=== PATIENT | male | born 1960 | race Caucasian/White ===

== ENCOUNTER → 2020-06-19 12:40 | Outpatient (BNVA) | payer BC, SELFPAY | PROVIDERS: Visit Provider Orthopaedic Surgery | DX: Z76.89 Persons encountering health services in other specified circumstances (principal) ==

== ENCOUNTER → 2020-07-31 12:36 | Outpatient (BNVA) | payer BC, SELFPAY | PROVIDERS: Visit Provider Orthopaedic Surgery | DX: Z76.89 Persons encountering health services in other specified circumstances (principal) ==

== ENCOUNTER 2023-10-30 14:36 | Outpatient (AMB) | payer BC, SELFPAY ==
--- NOTE | 2023-10-30 14:38 | MHC.OFFVIS ---
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 He was seen in 2020 for right shoulder bursitis. He reports that the right shoulder is feeling worse than the left. Pain has started to travel up the sides of the neck . Mild numbness and tingling in the hands which is worse on the right than the left. Increased pain with reaching above the head, behind the back and across the body. 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 He was seen in 2020 for right shoulder bursitis. He reports that the right shoulder is feeling worse than the left. Pain has started to travel up the sides of the neck . Mild numbness and tingling in the hands which is worse on the right than the left. Increased pain with reaching above the head, behind the back and across the body. 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 [facility] Medical History Bursitis of right shoulder CAD (coronary artery disease) Heart problem Lateral epicondylitis Surgical History History of coronary artery stent placement Social History Current occupational status: employed Current occupation: [employer]- right handed Physical Exam Const General: cooperative, healthy appearing, no acute distress and well groomed Orientation/consciousness: oriented to person and oriented to place HEENT Head: Yes normal to inspection, Yes normocephalic and Yes atraumatic Eyes General: appearance normal, both eyes and all related structures Alignment and Position: alignment normal Conjunctivae: conjunctivae normal EOM: EOMs intact bilaterally Neck Neck: Yes normal visual inspection and Yes trachea midline Resp Other: No rerpiratory distress Effort & Inspection: normal respiratory effort and able to speak in complete sentences Cardio Other: Palpable radial pulse with no appreciable rythmic abnormalities GI Other: No abdominal distension Back/Spine/Pelvis Cervical Spine: normal cervical lordosis and cervical ROM normal Skin General skin exam: no rashes or lesions noted Neuro General: oriented to person, oriented to place and gait normal Extrem Other: 45/90/130/L5 Negative EC Bilateral + Hawkin's and Neer Assessment & Plan Assessment & Plan (1) Bilateral shoulder bursitis: Code(s): M75.51 - Bursitis of right shoulder; M75.52 - Bursitis of left shoulder Plan: This is a 63-year-old gentleman who works with his hands and has bilateral shoulder pain consistent with bursitis. He is difficulty sleeping at night and difficulty getting his hands above the level of his shoulders without difficulty. This has been slowly worsening over the past several months but worsened dramatically after particularly heavy day of lifting at work. I had a long discussion with him and recommend activity modification. He describes not having light duty at work and I think it is reasonable to abstain from lifting at work for period of time in which she can undergo physical therapy and chiropractic treatment. He has a chiropractor he is going to see for his neck pain. Coding Level of Care Code Est Pt Level 3 (82055) Diagnoses Bilateral shoulder bursitis M75.51; M75.52
== END 2023-10-30 15:58 | disposition home or self-care (01) ==
PROVIDERS: Visit Provider Orthopaedic Surgery
DX: M75.51 Bursitis of right shoulder (principal); M75.52 Bursitis of left shoulder
CPT/HCPCS: 99213

== ENCOUNTER → 2023-10-30 14:36 | Outpatient (BNVA) | payer BC, SELFPAY | PROVIDERS: Visit Provider Orthopaedic Surgery ==

== ENCOUNTER 2024-01-08 10:24 | Outpatient (REF) | payer OTHER, BC, SELFPAY ==
--- NOTE | ~2024-01-08 | MR_ITS ---
EXAMINATION: MR SHOULDER WITHOUT CONTRAST, RIGHT CLINICAL INFORMATION: Right shoulder pain following an injury 2 weeks ago. COMPARISON: Right shoulder MRI dated 12/25/2019. TECHNIQUE: MRI of the shoulder without contrast was performed on a high-field scanner. FINDINGS: ROTATOR CUFF: Mild supraspinatus and infraspinatus tendinosis, which has decreased in prominence when compared to the prior examination. Bursal surface fraying/partial tearing of the supraspinatus tendon measuring up to 1.0 cm in ML dimension as well as infraspinatus insertional intrasubstance partial tearing measuring 1.0 x 0.8 cm (AP by ML). Tearing is decreased in prominence when compared to the prior examination. No full-thickness rotator cuff tendon tear. Mild teres minor muscle atrophy, new when compared to the prior examination. BICEPS: Small amount of fluid within the proximal long head biceps tendon sheath, consistent with mild tenosynovitis. No transverse tendon tear or tendon retraction. CORACOACROMIAL ARCH: The undersurface of the acromion is minimally curved with tiny subacromial spurs. Moderate acromioclavicular osteoarthritis and small joint effusion. LABRUM/CAPSULE: Redemonstration of near circumferential undersurface tearing of the labrum is redemonstrated. No new or increasing labral tear. Significant interval decrease with near-complete resolution of the previously seen paralabral cyst. Tiny residual posterosuperior paralabral cyst measuring up to 0.7 cm in greatest dimension. Intact joint capsule. GLENOHUMERAL JOINT/MARROW: Mild posterior glenoid articular cartilage thinning and signal heterogeneity with minimal subchondral cystic change and tiny marginal osteophytes, new when compared to the prior examination. No acute osseous injury. No significant joint effusion. MR/MR shoulder RT wo con IMPRESSION: 1. Mild supraspinatus and infraspinatus tendinosis with bursal surface fraying/partial tearing, decreased in prominence when compared to the prior examination. No full-thickness rotator cuff tendon tear. Mild teres minor muscle atrophy, new when compared to the prior examination. 2. Mild proximal long head biceps tenosynovitis without a measurable tendon tear. 3. Moderate acromioclavicular osteoarthritis and small joint effusion with tiny subacromial spurs, unchanged. 4. Near circumferential undersurface tearing of the glenoid labrum, unchanged. Near-complete resolution of the previously seen paralabral cyst with a tiny residual posterosuperior paralabral cyst measuring up to 0.7 cm. 5. Mild glenohumeral osteoarthritis, new when compared to the prior examination.
== END 2024-01-08 10:25 | disposition home or self-care (01) ==
LOC: HO.MRI 10:24
PROVIDERS: PCP Pediatrics; Visit Provider Orthopaedic Surgery
DX: M24.811 Other specific joint derangements of right shoulder, not elsewhere classified (principal)
CPT/HCPCS: 73221

== ENCOUNTER 2024-01-09 13:00 | Outpatient (RCR) | payer OTHER, BC, SELFPAY ==
[2023-12-14 11:08] VITALS: PULSE 73; O2SAT 96
== END 2024-06-24 07:49 | disposition home or self-care (01) ==
LOC: HO.PTWFD 13:00
PROVIDERS: PCP Pediatrics; Visit Provider Orthopaedic Surgery
DX: M75.51 Bursitis of right shoulder (principal); M75.52 Bursitis of left shoulder
CPT/HCPCS: 97110; 97140; 97162; 97530

== ENCOUNTER 2024-01-22 09:38 | Outpatient (AMB) | payer BC, SELFPAY ==
--- NOTE | 2024-01-22 09:43 | MHC.OFFVIS ---
Vital Signs 01/22/24 09:44 Height 5 ft 3 in Weight 189 lb BMI 33.5 Handedness Right Intake Visit Reasons: O/V B/L Shoulder pain- work status Intake Note: Ajit is a 63 year old right hand dominant male who presents today as a new patient with complaints of bilateral shoulder pain. Ajit has been out of work , we received paperwork and need to discuss work status. Patient reports his left shoulder is worse than his right with numbness radiating into right hand. He is unable to raise his arms above his head and ROM is limited. He expresses he is in therapy, waiting for MRI for rt shoulder and neck. Wants to discuss work status today. Accompanied by: Spouse Allergies No Known Allergies Allergy (Verified 01/22/24 09:49) HPI HPI O/V B/L Shoulder pain- work status: Details: Ajit is a 63 year old right hand dominant male who presents today with complaints of bilateral shoulder pain and neck pain. He feels these injuries occurred at work especially with all the repetative motions he was doing recently at work. Ajit has been out of work , we received paperwork and need to discuss work status. Patient reports his left shoulder is worse than his right with numbness radiating into right hand. He is unable to raise his arms above his head and ROM is limited. He expresses he is in therapy, waiting for MRI for left shoulder and neck. 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 [address] [address] Magnetic Resonance Report Signed Patient: Ajit Tinsley MR#: [id number] : 1960 Acct:[id number] Age/Sex: 63 / M ADM Date: 01/08/24 Loc: HO.MRI Attending Dr: Frederic Cummings MD Ordering Physician: Frederic Cummings MD Date of Service: 01/08/24 Procedure(s): MR shoulder RT wo con Accession Number(s): [id number] cc: Frederic Cummings MD; NICOLE GUTHRIE MD~ EXAMINATION: MR SHOULDER WITHOUT CONTRAST, RIGHT CLINICAL INFORMATION: IMPRESSION: 1. Mild supraspinatus and infraspinatus tendinosis with bursal surface fraying/partial tearing, decreased in prominence when compared to the prior examination. No full-thickness rotator cuff tendon tear. Mild teres minor muscle atrophy, new when compared to the prior examination. 2. Mild proximal long head biceps tenosynovitis without a measurable tendon tear. 3. Moderate acromioclavicular osteoarthritis and small joint effusion with tiny subacromial spurs, unchanged. 4. Near circumferential undersurface tearing of the glenoid labrum, unchanged. Near-complete resolution of the previously seen paralabral cyst with a tiny residual posterosuperior paralabral cyst measuring up to 0.7 cm. 5. Mild glenohumeral osteoarthritis, new when compared to the prior examination. Assessment & Plan Assessment & Plan (1) Internal derangement of left shoulder: Code(s): M24.812 - Other specific joint derangements of left shoulder, not elsewhere classified Category: Medical Plan: MRI ordered. Cannot lift arm comfortably and as such cannot work. f/u 6 weeks (2) Neck pain: Code(s): M54.2 - Cervicalgia Category: Medical Plan: Included this is rx for PT (3) Internal derangement of right shoulder: Code(s): M24.811 - Other specific joint derangements of right shoulder, not elsewhere classified Category: Medical Plan: MRI shows extensive labral tearing and ACJ OA. RTC tendonitis. COnt PT Out of work f/u 6 weeks Orders: Orders PT Evaluation and Treatment Today M24.811 - Other specific joint derangements of right shoulder, not elsewhere classified, M24.812 - Other specific joint derangements of left shoulder, not elsewhere classified, M54.2 - Cervicalgia MR shoulder LT wo con Today M24.812 - Other specific joint derangements of left shoulder, not elsewhere classified Coding Level of Care Code Est Pt Level 4 (62681) Diagnoses Internal derangement of left shoulder M24.812 Neck pain M54.2 Internal derangement of right shoulder M24.811
[2024-01-22 09:44] VITALS: BMI 33.5
== END 2024-01-22 11:39 | disposition home or self-care (01) ==
PROVIDERS: Visit Provider Orthopaedic Surgery
DX: M24.812 Other specific joint derangements of left shoulder, not elsewhere classified (principal); M54.2 Cervicalgia; M24.811 Other specific joint derangements of right shoulder, not elsewhere classified
CPT/HCPCS: 99213

== ENCOUNTER → 2024-01-22 09:38 | Outpatient (BNVA) | payer BC, OTHER, SELFPAY | PROVIDERS: Visit Provider Orthopaedic Surgery ==

== ENCOUNTER 2024-02-26 17:52 | Outpatient (REF) | payer OTHER, BC, SELFPAY ==
--- NOTE | ~2024-02-26 | MR_ITS ---
EXAMINATION: MR SHOULDER WITHOUT CONTRAST, LEFT CLINICAL INFORMATION: Left shoulder pain. COMPARISON: None available. TECHNIQUE: MRI of the shoulder without contrast was performed on a high-field scanner. FINDINGS: ROTATOR CUFF: There is mild supraspinatus and subscapularis tendinosis. Subtle fraying is noted at the cephalad margin of the subscapularis tendon at the insertion on the lesser tuberosity. No discrete tears. At the supraspinatus insertion, there is an 8 x 5 x 3 mm low signal intensity focus consistent with calcific tendinitis. Minimal overlying bursal edema. No tears. There is moderate atrophy and grade 3 fatty replacement of the teres minor muscle. No additional rotator cuff muscle atrophy or fatty replacement. No appreciable abnormalities around the expected location of the axillary nerve at the quadrilateral space. BICEPS: Normal. CORACOACROMIAL ARCH: The undersurface of the acromion is flat with no subacromial spur. Moderate acromioclavicular osteoarthritis. LABRUM/CAPSULE: There is an ill-defined near circumferential tear of the glenoid labrum, which is most pronounced posterosuperiorly between the 11 o'clock position and 9 o'clock position and anteroinferiorly between the 2 o'clock position and 5 o'clock position. A small 6 mm paralabral cyst is suspected posteroinferiorly. Joint capsule is unremarkable. GLENOHUMERAL JOINT/MARROW: Small glenoid osteophytes. Mild chondral thinning at the humeral head superomedially. No fracture or malalignment. Bone marrow signal is normal. No joint effusion. MR/MR shoulder LT wo con IMPRESSION: 1. Mild supraspinatus and subscapularis tendinosis with an 8 mm focus of calcific tendinitis at the supraspinatus insertion. No rotator cuff tears. 2. Moderate acromioclavicular and mild glenohumeral osteoarthritis. 3. Near circumferential tear of the glenoid labrum. 4. Moderate atrophy and grade 3 fatty replacement of the teres minor muscle. No appreciable abnormalities at the quadrilateral space.
== END 2024-02-26 17:53 | disposition home or self-care (01) ==
LOC: HO.MRI 17:52
PROVIDERS: PCP Pediatrics; Visit Provider Orthopaedic Surgery
DX: M24.812 Other specific joint derangements of left shoulder, not elsewhere classified (principal)
CPT/HCPCS: 73221

== ENCOUNTER 2024-03-04 10:01 | Outpatient (AMB) | payer BC, SELFPAY ==
[2024-03-04 10:03] VITALS: BMI 33.5
--- NOTE | 2024-03-04 10:03 | MHC.OFFVIS ---
Vital Signs 03/04/24 10:03 Height 5 ft 3 in Weight 189 lb BMI 33.5 Intake Visit Reasons: O/V B/L Shoulder pain-6 wk follow up Intake Note: Ajit is a 63 year old right hand dominant male who presents today for a follow up of his bilateral shoulder pain. He remains out of work at this time. Patient reports that he has noticed some improvement, He has started physical therapy which he is going 2x a week. Allergies No Known Allergies Allergy (Verified 01/22/24 09:49) HPI HPI O/V B/L Shoulder pain-6 wk follow up: Details: Ajit returns today having just started PT. His right shoulder is OK and his left shoulder has been increasingly painful. He is not currently working. He has had an MRI of both shoulders. 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 Left : 1. Mild supraspinatus and subscapularis tendinosis with an 8 mm focus of calcific tendinitis at the supraspinatus insertion. No rotator cuff tears. 2. Moderate acromioclavicular and mild glenohumeral osteoarthritis. 3. Near circumferential tear of the glenoid labrum. 4. Moderate atrophy and grade 3 fatty replacement of the teres minor muscle. No appreciable abnormalities at the quadrilateral space. Right: 1. Mild supraspinatus and infraspinatus tendinosis with bursal surface fraying/partial tearing, decreased in prominence when compared to the prior examination. No full-thickness rotator cuff tendon tear. Mild teres minor muscle atrophy, new when compared to the prior examination. 2. Mild proximal long head biceps tenosynovitis without a measurable tendon tear. 3. Moderate acromioclavicular osteoarthritis and small joint effusion with tiny subacromial spurs, unchanged. 4. Near circumferential undersurface tearing of the glenoid labrum, unchanged. Near-complete resolution of the previously seen paralabral cyst with a tiny residual posterosuperior paralabral cyst measuring up to 0.7 cm. 5. Mild glenohumeral osteoarthritis, new when compared to the prior examination. Assessment & Plan Assessment & Plan (1) Internal derangement of left shoulder: Code(s): M24.812 - Other specific joint derangements of left shoulder, not elsewhere classified Category: Medical Plan: Left shoulder with degenerative labral tearing and mild supraspiantus tendinosis and small calcification. PT and out or work. Ryan lreassess in 6 weeks (2) Internal derangement of right shoulder: Code(s): M24.811 - Other specific joint derangements of right shoulder, not elsewhere classified Category: Medical Plan: Degenerative labral tearing and OA. PT and out of work. Will follow up in 6 weeks Coding Level of Care Code Est Pt Level 4 (67024) Diagnoses Internal derangement of left shoulder M24.812 Internal derangement of right shoulder M24.811
== END 2024-03-04 10:46 | disposition home or self-care (01) ==
PROVIDERS: PCP Pediatrics; Visit Provider Orthopaedic Surgery
DX: M24.812 Other specific joint derangements of left shoulder, not elsewhere classified (principal); M24.811 Other specific joint derangements of right shoulder, not elsewhere classified
CPT/HCPCS: 99213

== ENCOUNTER → 2024-03-04 10:01 | Outpatient (BNVA) | payer BC, OTHER, SELFPAY | PROVIDERS: PCP Pediatrics; Visit Provider Orthopaedic Surgery ==

== ENCOUNTER 2024-04-18 11:23 | Outpatient (AMB) | payer OTHER, BC, SELFPAY ==
[2024-04-18 11:34] VITALS: BMI 27.9
--- NOTE | 2024-04-18 11:34 | MHC.OFFVIS ---
Vital Signs 04/18/24 11:34 Height 5 ft 9 in Weight 189 lb BMI 27.9 Intake Visit Reasons: O/V B/L Shoulder pain-6 wk follow up Intake Note: Ajit is a 63 year old right hand dominant male who presents today for a follow up of his bilateral shoulder pain. He remains out of work at this time Allergies No Known Allergies Allergy (Verified 01/22/24 09:49) HPI HPI O/V B/L Shoulder pain-6 wk follow up: Details: Ajit is a 63-year-old gentleman who is 6 we follow up with bilateral shoulder pain. On the right he feels the pain is improving but he still has difficulty with abduction and reaching activities on the left. His MRI on the left shows supraspinatus and subscapularis tendinosis with calcific tendinitis at the supraspinatus insertion. He has circumferential glenoid labral tear and teres minor atrophy with moderate AC joint arthritis and mild glenohumeral arthritis. 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 Mild supraspinatus and subscapularis tendinosis with an 8 mm focus of calcific tendinitis at the supraspinatus insertion. No rotator cuff tears. 2. Moderate acromioclavicular and mild glenohumeral osteoarthritis. 3. Near circumferential tear of the glenoid labrum. 4. Moderate atrophy and grade 3 fatty replacement of the teres minor muscle. No appreciable abnormalities at the quadrilateral space. Assessment & Plan Assessment & Plan (1) Internal derangement of left shoulder: Code(s): M24.812 - Other specific joint derangements of left shoulder, not elsewhere classified Category: Medical Plan: I have in his left shoulder aggressive tendinitis as well as circumferential labral tearing and mild osteoarthritis. I think surgery would be of questionable benefit but at the same time he is having difficult time with his work. I think a reasonable compromise would be PRP injection around the focus of calcium in his supraspinatus tendon as I think this is a primary pain generator. I will see if this can be accommodated 2 which is worker's comp insurance. I recommend he continue to abstain from work and continue physical therapy. I would see him back in 4 weeks approximately. (2) Calcific tendonitis of left shoulder: Code(s): M75.32 - Calcific tendinitis of left shoulder Category: Medical Plan: Coding Level of Care Code Est Pt Level 4 (68275) Diagnoses Internal derangement of left shoulder M24.812 Calcific tendonitis of left shoulder M75.32
== END 2024-04-18 14:15 | disposition home or self-care (01) ==
PROVIDERS: PCP Pediatrics; Visit Provider Orthopaedic Surgery
DX: M24.812 Other specific joint derangements of left shoulder, not elsewhere classified (principal); M75.32 Calcific tendinitis of left shoulder
CPT/HCPCS: 99214

== ENCOUNTER → 2024-04-18 11:23 | Outpatient (BNVA) | payer BC, OTHER, SELFPAY | PROVIDERS: PCP Pediatrics; Visit Provider Orthopaedic Surgery ==

== ENCOUNTER 2024-05-23 11:29 | Outpatient (AMB) | payer OTHER, BC, SELFPAY ==
--- NOTE | 2024-05-23 11:33 | MHC.OFFVIS ---
Vital Signs 05/23/24 11:34 Height 5 ft 9 in Weight 189 lb BMI 27.9 Intake Visit Reasons: OV:WC - Left Shoulder Calcific Tendonitis Intake Note: Ajit is a 63 year old right hand dominant male who presents today for a follow up of his WC Left shoulder calcific tendonitis. We petitioned for approval of PRP injections however this was denied. Allergies No Known Allergies Allergy (Verified 01/22/24 09:49) HPI HPI OV:WC - Left Shoulder Calcific Tendonitis: Details: Ajit is a 63 year old right hand dominant male who presents today for a follow up of his WC Left shoulder calcific tendonitis/rotator cuff tendinosis and labral degenerative tearing. We petitioned for approval of PRP injections however this was denied stating that he should have a steroid injection and fail before considering PRP. Unfortunately he is adamantly opposed to injecting steroid into his body. Him and his both agree that they are not interested in in steroids given the side effect profile and that it will not help him heal. 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 1. Mild supraspinatus and subscapularis tendinosis with an 8 mm focus of calcific tendinitis at the supraspinatus insertion. No rotator cuff tears. 2. Moderate acromioclavicular and mild glenohumeral osteoarthritis. 3. Near circumferential tear of the glenoid labrum. 4. Moderate atrophy and grade 3 fatty replacement of the teres minor muscle. No appreciable abnormalities at the quadrilateral space. Assessment & Plan Assessment & Plan (1) Calcific tendonitis of left shoulder: Code(s): M75.32 - Calcific tendinitis of left shoulder Category: Medical Plan: This is a 64-year-old gentleman with predominantly left shoulder pain. His MRI and exam are consistent with calcific tendinitis with rotator cuff dysfunction. He is adamant that he does not want a steroid injection. I will seek a peer to peer to petition for PRP. Coding Level of Care Code Est Pt Level 3 (58351) Diagnoses Calcific tendonitis of left shoulder M75.32
[2024-05-23 11:34] VITALS: BMI 27.9
== END 2024-05-23 12:03 | disposition home or self-care (01) ==
PROVIDERS: PCP Pediatrics; Visit Provider Orthopaedic Surgery
DX: M75.32 Calcific tendinitis of left shoulder (principal)
CPT/HCPCS: 99213

== ENCOUNTER → 2024-05-23 11:29 | Outpatient (BNVA) | payer BC, OTHER, SELFPAY | PROVIDERS: PCP Pediatrics; Visit Provider Orthopaedic Surgery | DX: M75.32 Calcific tendinitis of left shoulder (principal) | CPT/HCPCS: 99212 ==

== ENCOUNTER 2024-07-25 06:05 | Outpatient (REF) | payer OTHER, BC, SELFPAY | END 2024-07-25 06:06 | disposition home or self-care (01) | LOC: CF 06:05 | PROVIDERS: Visit Provider Internal Medicine | DX: Z13.89 Encounter for screening for other disorder (principal) ==

== ENCOUNTER 2024-07-25 08:58 | Outpatient (AMB) | payer OTHER, SELFPAY ==
[2024-07-25 09:04] VITALS: BP 178/92; PULSE 74; O2SAT 97
--- NOTE | 2024-07-25 09:04 | A.OFFVIS_ITS ---
Vital Signs 07/25/24 09:04 07/25/24 10:17 BP 178/92 H 147/88 H Blood Pressure Location Rt brachial Rt brachial Position Sitting Sitting Pulse 74 63 Pulse Source Pulse Oximeter Pulse Oximeter Pulse Oximetry (%) 97 97 Oxygen Delivery Method Room Air Room Air Intake Visit Reasons: Left shoulder PRP Allergies No Known Allergies Allergy (Verified 01/22/24 09:49) HPI HPI Left shoulder PRP: Details: Patient presents for scheduled procedure. Denies any recent cough, cold, infection, fever or other significant changes in medical history since last office visit. [facility] Medical History Lateral epicondylitis Bursitis of right shoulder CAD (coronary artery disease) Heart problem Surgical History History of coronary artery stent placement Social History Current occupational status: employed Current occupation: [employer]- right handed Physical Exam Vital Signs: Last Vital Signs Pulse 74 07/25/24 09:04 BP 178/92 H 07/25/24 09:04 Pulse Ox 97 07/25/24 09:04 Oxygen Delivery Method Room Air 07/25/24 09:04 Office Procedures Platelet Rich Plasma Injection PRP Joint Injection After informed written consent was obtained, pre-procedure oxygen saturation, heart rate, and blood pressure were recorded. An 18 gauge butterfly needle was used to obtain 50 mL of whole blood from the right antecubital fossa. This was then mixed with 9 mL anticoagulant citrate dextrose solution. The 60 mL mixture was counter balanced to within 1 g and spun at 3500 rpm for 10 minutes. Platelet poor plasma was then drawn using a bench top press model. 6 mL of slightly leukocyte rich PRP was isolated in a 10 cc syringe. Primary Site: left shoulder (2 mL each at supraspinatus tendon, biceps tendon, AC joint) Prep: site was prepped using sterile technique Approach Used: other (US guided) Procedure: The patient tolerated the procedure well XCELL Platelet Plasma - 0232T 60 mL All charges added?: Procedure code (CPT) selection complete Assessment & Plan Assessment & Plan (1) Calcific tendonitis of left shoulder: Code(s): M75.32 - Calcific tendinitis of left shoulder Category: Medical Plan Patient is status post left shoulder PRP injection as above. Patient tolerated procedure well and was discharged home in stable condition with discharge instructions. All questions were answered. We will follow-up via telephone or in clinic to assess response to therapy. A follow-up appointment was made during today's visit. Orders: Orders AMB Platelet Rich Plasma (PRP) Injection Today M75.32 - Calcific tendinitis of left shoulder Coding Level of Care Code Procedure Only Diagnoses Calcific tendonitis of left shoulder M75.32 CPT Codes XCELL Kit 60mL ([id number])
[2024-07-25 10:17] VITALS: BP 147/88; PULSE 63; O2SAT 97
== END 2024-07-25 10:25 | disposition home or self-care (01) ==
LOC: HO.PMCPRC 08:58
PROVIDERS: PCP Pediatrics; Visit Provider Internal Medicine
DX: M75.32 Calcific tendinitis of left shoulder (principal)
CPT/HCPCS: 0232T

== ENCOUNTER 2024-09-18 09:12 | Outpatient (AMB) | payer OTHER, BC, SELFPAY ==
--- NOTE | 2024-09-18 09:17 | A.OFFVIS_ITS ---
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 He initially received the injection to address pe rsistent shoulder pain and decreased range of motion, particularly impacting activities such as reaching overhead and securing his belt. Post-procedure, he experienced significant pain, lasting at least one week, for which Tramadol was prescribed with minimal relief. There was a mild improvement in his condition, allowing better sleep on the affected side and slight enhancement in range of motion, but notable limitations persist. He reports feeling bone pain after the injection, though advised this is not bone-related. Prior interventions included the PRP injection, with considerations for further treatment due to the mild benefit observed. Pain Description - Location: Left shoulder - Exacerbating factors: Reaching overhead, tying belt - Relieving factors: None explicitly discussed - Interference: Affects sleep, daily activities such as securing belt Physical Exam - Upper Extremity- Limited range of motion in the left shoulder; difficulty extending above head level and severely limited external rotation, unable to touch lower back Results Pain Management - Affect: No discussion regarding mood impacts - Analgesia: Tramadol provided mild relief; plan to use oxycodone pre-procedure. Pain level improved slightly after initial treatment. 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 Physical Exam Vital Signs: Last Vital Signs Pulse 78 09/18/24 09:18 Resp 16 09/18/24 09:18 BP 181/97 H 09/18/24 09:18 Pulse Ox 97 09/18/24 09:18 Oxygen Delivery Method Room Air 09/18/24 09:18 BMI result Body Mass Index 29.4 Assessment & Plan Assessment & Plan (1) Calcific tendonitis of left shoulder: Code(s): M75.32 - Calcific tendinitis of left shoulder Category: Medical (2) Internal derangement of left shoulder: Code(s): M24.812 - Other specific joint derangements of left shoulder, not elsewhere classified Category: Medical (3) Bilateral shoulder bursitis: Code(s): M75.51 - Bursitis of right shoulder; M75.52 - Bursitis of left shoulder Category: Medical Plan Plan - Plan for a repeat PRP injection pending authorization from workers' compensation. Mild improvement following last PRP injection but deficits persist. - Implement a left suprascapular nerve block prior to injection for analgesia next time - Prescribe Valium to manage anxiety and reduce fainting risk during procedure - Prescribe Oxycodone as pre-procedure analgesic for both pre and post-procedure pain management - Provide a work note to excuse from work until October 26 or beyond as needed Patient was informed and verbally consented to the use of an ambient scribe for clinic note documentation during this visit. Discussion Notes I discussed with the patient that while some improvement was noted after the initial PRP injection, further procedures may be necessary to achieve significant benefits. We discussed the pain management plan, including the use of a suprascapular nerve block and pre-procedure medications (Oxycodone and Valium) to improve tolerance. The benefits and risks of these approaches were reviewed, including the potential for temporary relief through the nerve block and the effect of medications. We reviewed and agreed on pursuing a second PRP injection and necessary procedures for obtaining authorization. Patient Instructions - Take Oxycodone and Valium as directed 2 hours before the next PRP injection. - Monitor for pain levels and report if relief is not as expected or if there is worsening. - Fill prescriptions for pain management and store them securely. - Schedule follow-up appointments in coordination with the next procedure. - Contact insurance to confirm authorization for the upcoming procedure. - Reach out with any questions or concerns regarding medications or follow-up plan. - Note the work absence until October 26 due to the procedure. Medications: New diazepam take 2 hours prior to procedure 5 mg PO BEDTIME PRN 1 tab 0RF sleep oxycodone Partial Fill upon patient request. Take 2 tablets prior to procedure and then continue as needed 5 mg PO BID PRN 10 tabs 0RF pain Coding Level of Care Code Est Pt Level 3 (78220) Diagnoses Calcific tendonitis of left shoulder M75.32 Internal derangement of left shoulder M24.812 Bilateral shoulder bursitis M75.51; M75.52
[2024-09-18 09:18] VITALS: BP 181/97; PULSE 78; RESP 16; O2SAT 97; BMI 29.4
--- OUTSIDE RECORDS SUMMARY | 2024-09-18 09:32 | XMS_ITS | Clinical Summary ---
Author Organization [facility] [address] [facility] lding Address [address] [place] [address] Phone Care Team Providers Care Bleach Boiler Filler Name Role Phone Ameena Bonilla MD Primary Care Provider [phone] Allergies No known active allergies Medications Medication Sig Dispensed Refills Start Date End Date Status multivitamin with minerals tablet Take 1 Tablet by mouth 2 times daily. Active famotidine (PEPCID) 20 mg tablet Take 1 tablet (20 mg total) by mouth if needed for heartburn. Active amLODIPine (NORVASC) 2.5 mg tablet Take 1 tablet (2.5 mg total) by mouth 1 (one) time each day. 90 each 07/02/2024 09/30/2024 Active Active Problems Problem Noted Date Diagnosed Date Colon cancer screening 08/15/2024 Overview (08/15/2024): 08/06. Cologuard neg. Diastasis recti 07/02/2024 Obstructive sleep apnea 06/11/2020 Overview (06/05/2024): [facility] Polysomnogram: Date 06/05/2020; Wt 190#; BMI 34; SE 91%; SM 92%; REM 22%; RDI 6 (AHI 6), REM (RDI 13 - AHI 13), Central apneas 5; Obstructive apneas 0; Mixed apneas 0; hypopneas 37; RERAs 5; average oxygen saturation 94% (lowest 86% - without saturations <88% for 5% or more of study); PLMs 12. - Obstructive Sleep Apnea - mild; mostly hypopneas; without sleep related hypoventilation by 2019 polysomnogram. Obesity (BMI 30-39.9) 04/20/2018 Paresthesia of arm 04/20/2018 Chronic right-sided low back pain 04/18/2017 Carpal tunnel syndrome on both sides 09/09/2011 Overview (06/05/2024): EMG 11/30 moderate to severe right median neuropathy Nodule of chest wall 09/09/2011 Coronary artery disease invo lving pechanga coronary artery of pechanga heart without angina pectoris 08/11/2011 Overview (06/05/2024): [facility] admission from office- 07/26/11 07/27/2011 - BMS to RCA, to LCX Lifelong aspirin, Prasugrel ideally for a year 08/29 - normal nuclear exercise stress test 05/01. MIBI. Small inf basal infarct Last Assessment & Plan: They know this patient has a known history of coronary artery disease. He has been getting some shortness of breath with exertion. Today the ECG did demonstrate that the T waves were more inverted in 3 and aVF than they were in the past. Is not clear if he is progression of his coronary disease this may be causing some of her shortness of breath. The epigastric pain he gets is somewhat atypical for heart disease I am not going to schedule for stress echocardiogram. The meantime I did tell if any discomforts in his chest including the epigastric discomfort that lasted over 20 minutes call 911. Heartburn 06/03/2009 Rosacea 06/03/2009 Mixed hyperlipidemia 03/29/2006 Overview (06/05/2024): IMO update Last Assessment & Plan: I reviewed his last lipid profile with him and the triglycerides were 200 the LDL was 77. The patient does eat a fair amount of saturated fat and carbohydrates. I discussed this with him indicating that is to be important to try and get the triglycerides as well as LDL down. I did speak to about decreasing saturated fat intake cholesterol intake as well as his carbohydrates. He also is eating a fair amount of salty food fried food I told him he needs to cut down on this. I have given him a slip to repeat his lipid profile in about 4 to 6 weeks. Depending on what the lipids show we will decide if we will add anything to the Crestor. Encounters Date Type Department Care Team Description 07/02/2024 11:40 AM EST Lab Draw Station - [address] [phone] Routine general medical examination at a health care facility; Mixed hyperlipidemia; Coronary artery disease involving pechanga coronary artery of pechanga heart without angina pectoris 07/02/2024 9:30 AM EST Office Visit Adult Medicine - [address] [phone] Monika Schultz PA Routine general medical examination at a health care facility (Primary Dx); Gastroesophageal reflux disease, unspecified whether esophagitis present; Bloating; Globus sensation; Mixed hyperlipidemia; Coronary artery disease involving pechanga coronary artery of pechanga heart without angina pectoris; Special screening for malignant neoplasms, colon; Screening for malignant neoplasm of the rectum; Irregular heart rhythm; Asymptomatic PVCs; Elevated blood pressure reading; Elevated PSA from Last 3 Months Immunizations Name Administration Dates Next Due Tdap Tetanus diptheria acell ular pertussis (Boostrix; Adacel) 7yo and older 09/09/2011 Surgical History Surgery Date Site/Laterality Comments CARDIAC CATHETERIZATION 07.27.11 PROCEDURE: HISTORICAL CARDIAC CATH; COMMENT: [place] - [facility] to RCA and to LCX Family History Medical History Relation Name Comments CABG Father Coronary artery disease Father Diabetes Mother aat age 80 CABG Sister Relation Name Status Comments Father Mother Alive Sister Social History Tobacco Use Types Packs/Day Years Used Date Smoking Tobacco: Never Smokeless Tobacco: Never Alcohol Use Standard Drinks/Week Comments No 0 (1 standard drink = 0.6 oz pur e alcohol) Housing Instability Answer Date Recorde d Are you worried that in the next 2 months you may not have stable housing? No 07/01/2024 Food Access & Nutrition Answer Date Rec orded Do you have access to a vari ety of food including fruits and vegetables? Yes 07/01/2024 Access to Healthcare Answer Date Record ed Within the last 3 months, godwin jhaveri many times did you visit the emergency department for your medical care? 0 07/01/2024 Health Literacy Answer Date Recorded How often do you need to hav e someone help you when you read instructions, pamphlets, or other written material from your doctor or pharmacy? Often 07/01/2024 Caregiver: How often do you need to have someone help you when you read instructions, pamphlets, or other written material from your doctor or pharmacy? Not on file 07/01/2024 Financial Risk Answer Date Recorded How hard is it for you to pa y for the very basics like food, housing, medical care, and air conditioning / heating? Somewhat hard 07/01/2024 Transportation Answer Date Recorded Has the lack of transportati on kept you from meetings, work, or from getting things needed for daily living? No Has the lack of transportati on kept you from medical appointments or from getting medications? No 07/01/2024 Social Isolation Answer Date Recorded How often do you feel lonely or isolated from th ose around you? Never 07/01/2024 Food Risk Answer Date Recorded Within the past 12 months we worried whether our food would run out before we got money to buy more. Not asked 07/01/2024 Within the past 12 months th e food we bought just didn't last and we didn't have money to get more. Not asked 07/01/2024 Dependent Care Answer Date Recorded Do you need help finding or paying for care for your loved ones. For example, child protective services specialist or elderly care for an older adult? No 07/01/2024 Education Answer Date Recorded Do you think completing more education or training, like finishing a GED, going to college, or learning a trade, would be helpful for you? N/A 07/01/2024 Employment and Income Answer Date Recor ded During the last four weeks, have you been actively looking for work? No 07/01/2024 Living Situation Answer Date Recorded What is your living situation? 1 08/31/2023 Sex and Gender Information Value Date Recorded Sex Assigned at Not on file Gender Identity Not on file Sexual Orientation Not on file Job Start Date Occupation Industry Not on file Not on file Not on file Obstetrics History Last Filed Vital Signs Vital Sign Reading Time Taken Comments Blood Pressure 143/83 07/02/2024 9:34 AM EST Pulse 69 07/02/2024 9:34 AM EST Temperature 36.6 ??C (97.8 ??F) 07/02/2024 9:34 AM ES T Respiratory Rate - - Oxygen Saturation - - Inhaled Oxygen Concentration - - Weight 85.7 kg (189 lb) 04/30/2024 2:42 PM EDT Height 160 cm (5' 3 ) 07/02/2024 9:34 AM EST Body Mass Index 33.48 04/30/2024 2:42 PM EDT Plan of Treatment Upcoming Encounters Date Type Department Care Team ([facility] st Contact Info) Description 09/19/2024 10:00 AM EST Consult Gastroenterology - [place] [address] [facility] [address] [place] [phone] Marychuy Deleon, EMILY [address] [facility] [address] [place] [address] Health Maintenance Due Date Last Done Comments Zoster Vaccines (1 of 2) 2012 DTaP,Tdap,and Td Vaccines (2 - Td or Tdap) 09/09/2021 09/09/2011 Colorectal Cancer Screening: Stool Based Tests (FOBT/FIT) 07/17/2022 HIV Screening 07/17/2022 COVID-19 Vaccine (1 - 2023-2 5 season) 2024 Influenza Vaccine (#1) 2024 Depression Screening 07/01/2025 07/01/2024 Social Influencers of Health Screening 07/01/2025 07/01/2024 Hypertension/CHF/CAD Annual BMP Blood Test 07/02/2025 07/02/2024, 09/08/2023 Cholesterol Screening (Lipid Panel) 05/01/2029 05/01/2024, 05/01/2024 RSV Immunization Patients 60 + Years Old (1 - 1-dose 75+ series) 2037 Hepatitis C Screening Completed 11/28/2012 Colorectal Cancer Screening: Colonoscopy Discontinued 05/10/2017 HIB Vaccines Aged Out No longer eligi ble based on patient's age to complete this topic HPV Vaccines Aged Out No longer eligi ble based on patient's age to complete this topic Hepatitis A Vaccines Aged Out No long er eligible based on patient's age to complete this topic Hepatitis B Vaccines Aged Out No long er eligible based on patient's age to complete this topic IPV Vaccines Aged Out No longer eligi ble based on patient's age to complete this topic MMR Vaccines Aged Out No longer eligi ble based on patient's age to complete this topic Meningococcal ACWY Vaccine Aged Out N o longer eligible based on patient's age to complete this topic Pneumococcal Vaccine: Pediatrics (0 to 5 Years) and At-Risk Patients (6 to 64 Years) Aged Out No longer eligible based on patient's age to complete this topic RSV Immunization Patients Under 20 months Aged Out No longer eligible based on patient's age to complete this topic Varicella Vaccines Aged Out No longer eligible based on patient's age to complete this topic Procedures Procedure Name Priority Date/Time Associated Diagnosis Comments LAB COLOGUARD?? COLON CANCER SCREEN Routine 08/03/2024 8:40 AM EST Special screening for malignant neoplasms, colon Screening for malignant neoplasm of the rectum CBC WITH AUTO DIFFERENTIAL Routine 07/02/2024 11:36 AM EST Routine general medical examination at a [facility] care facility THYROID STIMULATING HORMONE WITH REFLEX TO FREE T4 AND FREE T3 Routine 07/02/2024 11:36 AM EST Routine general medical examination at a [facility] care facility HEMOGLOBIN A1C Routine 07/02/2024 11:36 AM EST Routine general medical examination at a health care facility Mixed hyperlipidemia Coronary artery disease involving pechanga coronary artery of pechanga heart without angina pectoris PROSTATE SPECIFIC ANTIGEN SCREEN Routine 07/02/2024 11:36 AM EST Routine general medical examination at a [facility] care facility COMPREHENSIVE METABOLIC PANEL Routine 07/02/2024 11:36 AM EST Routine general medical examination at a [facility] care facility CBC AND DIFFERENTIAL Routine 07/02/2024 11:36 AM EST Routine general medical examination at a health care facility ECG 12-LEAD Routine 07/02/2024 11:04 AM EST Coronary artery disease involving pechanga coronary artery of pechanga heart without angina pectoris Irregular heart rhythm LIPID PANEL Routine 05/01/2024 COLONOSCOPY Routine 05/10/2017 HEPATITIS C SCREENING Routine 11/28/2012 from Last 3 Months or Most Recently Relevant to Health Maintenance Results * Cologuard?? colon cancer screening (08/03/2024 8:40 AM EST) COLOGUARD Negative Negative [facility] Comment: NEGATIVE TEST RESULT. A negative Cologuard result indicates a low likelihood that a colorectal cancer (CRC) or advanced adenoma (adenomatous polyps with more advanced pre-malignant features) ??is present. The chance that a person with a negative Cologuard test has a colorectal cancer is less than 1 in 1500 (negative predictive value >99.9%) or has an ??advanced adenoma is less than ??5.3% (negative predictive value 94.7%). These data are based on a prospective cross-sectional study of 10,000 individuals at average risk for colorectal cancer who were screened with both Cologuard and colonoscopy. (Lori Norman al, N Engl J Med 2014;370(14):1286- 1297) The normal value (reference range) for this assay is negative. COLOGUARD RE-SCREENING RECOMMENDATION: Periodic colorectal cancer screening is an important part of preventive healthcare for asymptomatic individuals at average risk for colorectal cancer. ??Following a negative Cologuard result, the [place] Cancer Society and U.S. Multi-Society Task Force screening guidelines recommend a Cologuard re-screening interval of 3 years. References: [place] Cancer Society Guideline for Colorectal Cancer Screening: https://www.cancer.org/cancer/itnce-abakrz-ptecxw/dmhygalua-hferuetbw-jgjhtqo/ac s-rec ommendations.html.; Joey DK, Francis CR, Mitra LalaK, Colorectal Cancer Screening: Recommendations for Physicians and Patients from the U.S. Multi-Society Task Force on Colorectal Cancer Screening , Am J Gastroenterology 2017; 112:6520-5551. TEST DESCRIPTION: Composite algorithmic analysis of stool DNA-biomarkers with hemoglobin immunoassay. ?? Quantitative values of individual biomarkers are not reportable and are not associated with individual biomarker result reference ranges. Cologuard is intended for colorectal cancer screening of adults of either sex, 45 years or older, who are at average-risk for colorectal cancer (CRC). Cologuard has been approved for use by the U.S. FDA. The performance of Cologuard was established in a cross sectional study of average-risk adults aged 50-84. Cologuard performance in patients ages 45 to 49 years was estimated by sub-group analysis of near-age groups. Colonoscopies performed for a positive result may find as the most clinically significant lesion: colorectal cancer [4.0%], advanced adenoma (including sessile serrated polyps greater than or equal to 1cm diameter) [20%] or non- advanced adenoma [31%]; or no colorectal neoplasia [45%]. These estimates are derived from a prospective cross-sectional screening study of 10,000 individuals at average risk for colorectal cancer who were screened with both Cologuard and colonoscopy. (Lori Beltran et al, N Engl J Med 2014;370(14):0106-9550.) Cologuard may produce a false negative or false positive result (no colorectal cancer or precancerous polyp present at colonoscopy follow up). A negative Cologuard test result does not guarantee the absence of CRC or advanced adenoma (pre-cancer). The current Cologuard screening interval is every 3 years. ([place] Cancer Society and U.S. Multi-Society Task Force). Cologuard performance data in a 10,000 patient pivotal study using colonoscopy as the reference method can be accessed at the following location: www.[employer]/results. Additional description of the Cologuard test process, warnings and precautions can be found at www.[employer].com. Stool 08/03/2024 8:40 AM EST 08/04/2024 10:20 AM EST Monika MULTANI LAB MOLECULAR DIAGNO STICS ORDERABLES [employer] - [address] [place] [id number] [facility] [address] [place] [address] * (ABNORMAL) Prostate specific antigen screen (07/02/2024 11:36 AM EST) PSA 4.52(H) 0.00 - 4.00 ng/mL LAB CHEMISTRY METHOD 07/04/2024 9:02 PM EST [facility] Blood Venous blood specimen / Unknown Venipuncture / Unknown 07/02/2024 11:36 AM EST 07/02/2024 11:36 AM EST Narrative [facility] - 07/04/2024 9:02 PM EST The Siemens Advia Centaur Chemiluminescent Immunoassay is used. Results obtained with different assay methods or kits cannot be used interchangeably. Results cannot be interpreted as absolute evidence of the presence or absence of malignant disease. Monika MULTANI LAB BLOOD ORDERABLES Performing Organization Address City/[facility]/ZIP Co de Phone Number [facility] [address] [place] [address], [place] [phone] * Thyroid stimulating hormone with reflex to free t4 and free t3 (07/02/2024 11:36 AM EST) [facility] TSH 1.74 0.40 - 4.00 mcIU/mL LAB CHEMISTRY METHOD 07/02/2024 3:17 PM EST [facility] Blood Venous blood specimen / Unknown Venipuncture / Unknown 07/02/2024 11:36 AM EST 07/02/2024 11:36 AM EST Monika MULTANI LAB BLOOD ORDERABLES Performing Organization Address City/[facility]/ZIP Co de Phone Number [facility] [address] [place] [address], [place] [phone] * (ABNORMAL) CBC auto differential (07/02/2024 11:36 AM EST) [facility] WBC 8.5 4.8 - 10.8 K/mcL LAB HEMETOLOGY METHOD 07/02/2024 3:18 PM EST [facility] RBC 4.70 4.50 - 5.50 M/mcL LAB HEMETOLOGY METHOD 07/02/2024 3:18 PM EST [facility] Hemoglobin 14.0 13.5 - 17.5 g/dL LAB HEMETOLOGY METHOD 07/02/2024 3:18 PM EST [facility] Hematocrit 42.1 42.0 - 54.0 % LAB HEMETOLOGY METHOD 07/02/2024 3:18 PM [facility] MCV 90.1 79.0 - 98.0 FL LAB HEMETOLOGY METHOD 07/02/2024 3:18 PM [facility] MCH 30.0 27.0 - 32.0 pcg LAB HEMETOLOGY METHOD 07/02/2024 3:18 PM [facility] MCHC 33.3 32.0 - 37.0 g/dL LAB HEMETOLOGY METHOD 07/02/2024 3:18 PM [facility] RDW 13.6 11.0 - 15.0 % LAB HEMETOLOGY METHOD 07/02/2024 3:18 PM [facility] Platelets 245 130 - 400 K/mcL LAB HEMETOLOGY METHOD 07/02/2024 3:18 PM [facility] MPV 10.9 7.0 - 11.0 FL LAB HEMETOLOGY METHOD 07/02/2024 3:18 PM [facility] NRBC 0.0 <1.0 % LAB HEMETOLOGY METHOD 07/02/2024 3:18 PM [facility] NRBC Absolute 0.00 <0.10 K/mcL LAB HEMETOLOGY METHOD 07/02/2024 3:18 PM [facility] Neutrophils Relative 55.8 % LAB HEMETOLOGY METHOD 07/02/2024 3:18 PM [facility] Lymphocytes Relative 29.3 % LAB HEMETOLOGY METHOD 07/02/2024 3:18 PM [facility] Monocytes Relative 8.4 % LAB HEMETOLOGY METHOD 07/02/2024 3:18 PM [facility] Eosinophils Relative 5.0 % LAB HEMETOLOGY METHOD 07/02/2024 3:18 PM [facility] Basophils Relative 0.9 % LAB HEMETOLOGY METHOD 07/02/2024 3:18 PM EST [facility] Immature Granulocytes Relative 0.6 % LAB HEMETOLOGY METHOD 07/02/2024 3:18 PM EST [facility] Neutrophils Absolute 4.72 1.50 - 7.00 K/mcL LAB HEMETOLOGY METHOD 07/02/2024 3:18 PM EST [facility] Lymphocytes Absolute 2.48 1.00 - 5.00 K/mcL LAB HEMETOLOGY METHOD 07/02/2024 3:18 PM EST [facility] Monocytes Absolute 0.71 0.20 - 1.00 K/mcL LAB HEMETOLOGY METHOD 07/02/2024 3:18 PM EST [facility] Eosinophils Absolute 0.42 0.00 - 0.50 K/mcL LAB HEMETOLOGY METHOD 07/02/2024 3:18 PM EST [facility] Basophils Absolute 0.08 0.00 - 0.20 K/mcL LAB HEMETOLOGY METHOD 07/02/2024 3:18 PM EST [facility] Immature Granulocytes Absolute 0.05(H) 0.00 - 0.03 K/mcL LAB HEMETOLOGY METHOD 07/02/2024 3:18 PM EST [facility] Blood Venous blood specimen / Unknown Venipuncture / Unknown 07/02/2024 11:36 AM EST 07/02/2024 11:36 AM EST Monika MULTANI LAB BLOOD ORDERABLES [facility] [address] [place] [address], * Hemoglobin A1c (07/02/2024 11:36 AM EST) Hemoglobin A1C 5.0 <6.5 % LAB CHEMISTRY METHOD 07/03/2024 1:01 PM EST [facility] Mean Bld Glu Estim. 97 mg/dL LAB CHEMISTRY METHOD 07/03/2024 1:01 PM [facility] Blood Venous blood specimen / Unknown Venipuncture / Unknown 07/02/2024 11:36 AM EST 07/02/2024 11:36 AM EST Monika Schultz NERISSA LAB BLOOD ORDERABLES [facility] [address] [place] [address], * (ABNORMAL) Comprehensive metabolic panel (07/02/2024 11:36 AM EST) Sodium 140 133 - 145 mmol/L LAB CHEMISTRY METHOD 07/02/2024 3:15 PM [facility] Potassium 4.6 3.5 - 5.5 mmol/L LAB CHEMISTRY METHOD 07/02/2024 3:15 PM [facility] Chloride 108 96 - 110 mmol/L LAB CHEMISTRY METHOD 07/02/2024 3:15 PM [facility] CO2 25 21 - 32 mmol/L LAB CHEMISTRY METHOD 07/02/2024 3:15 PM [facility] Anion Gap 7 3 - 11 LAB CHEMISTRY METHOD 07/02/2024 3:15 PM [facility] Glucose 104(H) 70 - 100 mg/dL LAB CHEMISTRY METHOD 07/02/2024 3:15 PM [facility] BUN 15 5 - 25 mg/dL LAB CHEMISTRY METHOD 07/02/2024 3:15 PM [facility] Creatinine 0.83 0.70 - 1.30 mg/dL LAB CHEMISTRY METHOD 07/02/2024 3:15 PM [facility] eGFR 99 >=60 mL/min/1. 73m2 LAB CHEMISTRY METHOD 07/02/2024 3:15 PM [facility] Comment:Calculation based on the??Chronic Kidney Disease Epidemiology Collaboration (CKD-EPI) equation refit??without adjustment for race. BUN/Creatinine Ratio 18.1 LAB CHEMISTRY METHOD 07/02/2024 3:15 PM [facility] Calcium 9.8 8.5 - 10.5 mg/dL LAB CHEMISTRY METHOD 07/02/2024 3:15 PM [facility] AST (SGOT) 25 10 - 42 unit/L LAB CHEMISTRY METHOD 07/02/2024 3:15 PM [facility] ALT (SGPT) 45 10 - 60 unit/L LAB CHEMISTRY METHOD 07/02/2024 3:15 PM [facility] Alkaline Phosphatase 75 42 - 121 unit/L LAB CHEMISTRY METHOD 07/02/2024 3:15 PM [facility] Total Protein 7.5 6.0 - 8.0 g/dL LAB CHEMISTRY METHOD 07/02/2024 3:15 PM [facility] Albumin 4.2 3.2 - 5.0 g/dL LAB CHEMISTRY METHOD 07/02/2024 3:15 PM [facility] Total Bilirubin 0.5 0.0 - 1.4 mg/dL LAB CHEMISTRY METHOD 07/02/2024 3:15 PM [facility] Blood Venous blood specimen / Unknown Venipuncture / Unknown 07/02/2024 11:36 AM EST 07/02/2024 11:36 AM EST Monika MULTANI LAB BLOOD ORDERABLES [facility] [address] [place] [address], * ECG 12 lead (07/02/2024 11:04 AM EST) Narrative Monika Schultz PA - 07/02/2024 11:04 AM EST Sinus rhythm. ??PVC. ??Borderline left axis deviation. ??Nonspecific T abnormalities similar to 05/07. ST elevation in V1-V2 - pt is asymptomatic. Message to cardiology to schedule follow up Monika Wellerlip PA ECG ORDERABLES * (ABNORMAL) Lipid panel (05/01/2024) [facility] LDL/HDL Ratio 7(A) 0 - 4 Triglycerides 311(A) 0 - 150 mg/dL Cholesterol 257(A) 0 - 200 mg/dL HDL 38(A) 40 mg/dL LDL Cholesterol 157(A) 0 - 100 mg/dL Blood Venous blood specimen / Unknown Historical Provider LAB BLOOD ORDERAB LES * Colonoscopy (05/10/2017) [facility] Colonoscopy No interpretation with ,abstracted Anatomical Region Laterality Modality Other Historical Provider MD RK BECKFORD E * Hepatitis C Screening (11/28/2012) [facility] Hepatitis C Screening Abstracted Historical Provider MD RK BECKFORD E from Last 3 Months or Most Recently Relevant to Health Maintenance Care Teams Bleach Boiler Filler Relationship Specialty Start Date End Date Ameena Bonilla MD [address] [place] [id number] PCP - General Internal Medicine 08/13/15
== END 2024-09-18 09:43 | disposition home or self-care (01) ==
PROVIDERS: PCP Pediatrics; Visit Provider Internal Medicine
DX: M75.32 Calcific tendinitis of left shoulder (principal); M24.812 Other specific joint derangements of left shoulder, not elsewhere classified; M75.51 Bursitis of right shoulder; M75.52 Bursitis of left shoulder
CPT/HCPCS: 99213

== ENCOUNTER → 2024-09-18 09:12 | Outpatient (BNVA) | payer OTHER, BC, SELFPAY | PROVIDERS: PCP Pediatrics; Visit Provider Internal Medicine | DX: M75.32 Calcific tendinitis of left shoulder (principal); M24.812 Other specific joint derangements of left shoulder, not elsewhere classified; M75.51 Bursitis of right shoulder; M75.52 Bursitis of left shoulder | CPT/HCPCS: 99212 ==

== ENCOUNTER 2024-10-24 06:10 | Outpatient (REF) | payer OTHER, BC, SELFPAY ==
--- OUTSIDE RECORDS SUMMARY | 2024-10-24 06:13 | XMS_ITS | Clinical Summary ---
Author Organization [facility] [address] [facility] lding Address [address] [place] [address] Phone Care Team Providers Care Parts Administrator Name Role Phone Ameena Bonilla MD Primary Care Provider [phone] Allergies No known active allergies Medications multivitamin with minerals tablet Take 1 Tablet by mouth 2 times daily. Active famotidine (PEPCID) 20 mg tablet Take 1 tablet (20 mg total) by mouth if needed for heartburn. Active cholecalcifero l (Vitamin D3) 25 mcg (1,000 unit) capsule Take 1 capsule (1,000 Units total) by mouth 1 (one) time each day. 4 Active diazePAM (VALIUM) 5 mg tablet Take 1 tablet (5 mg total) by mouth. 5 Active amLODIPine (NORVASC) 2.5 mg tablet TAKE 1 TABLET(2.5 MG) BY MOUTH 1 TIME EACH DAY 90 tablet 5 Active amLODIPine (NORVASC) 2.5 mg tablet Take 1 tablet (2.5 mg total) by mouth 1 (one) time each day. 90 each 4 09/27/19 25 Discontinued Active Problems Problem Noted Date Diagnosed Date Colon cancer screening 08/15/2024 Overview (08/15/2024): 08/06. Cologuard neg. Diastasis recti 07/02/2024 Obstructive sleep apnea 06/11/2020 Overview (06/05/2024): [facility] Polysomnogram: Date 06/05/2020; Wt 190#; [...] wall 09/09/2011 Coronary artery disease invo lving [place] coronary artery of [place] heart without angina pectoris 08/11/2011 Overview (06/05/2024): [facility] admission from office- 07/26/11 07/27/2011 - [...] Rosacea 06/03/2009 Mixed hyperlipidemia 03/29/2006 Overview (06/05/2024): [facility] update Last Assessment & Plan: I reviewed [...] Encounters Date Type Department Care Team Description 09/19/2024 10:00 AM EST Consult Gastroenterology - [place] [address] [place] [address] Marychuy Deleon NP Gastroesophageal reflux disease, unspecified whether esophagitis present (Primary Dx); Abdominal bloating; Colonoscopy refused from Last 3 Months Immunizations Name Administration [...] care for your loved ones. For example, early childhood director or elderly care for an older adult? [...] Recorded Sex Assigned at Not on file Legal Sex Male 12:20 AM EST Gender Identity Not on file Sexual Orientation Not on file Obstetrics History Last Filed Vital Signs Vital Sign Reading Time Taken Comments Blood Pressure 143/83 07/02/2024 9:34 AM EST Pulse 69 07/02/2024 9:34 AM EST Temperature 36.6 ??C (97.8 ??F) 07/02/2024 9:34 AM ES T Respiratory Rate - - Oxygen Saturation - - Inhaled Oxygen Concentration - - Weight 90.7 kg (200 lb) 09/19/2024 9:58 AM EST Height 160 cm (5' 3 ) 09/19/2024 9:58 AM EST Body Mass Index 35.43 09/19/2024 9:58 AM EST Plan of Treatment Health Maintenance Due Date Last Done Comments Pneumococcal Vaccine: 50+ Years (1 of 1 - PCV) 2012 Zoster Vaccines (1 of 2) 2012 DTaP,Tdap,and [...] patient's age to complete this topic Meningococcal B Vacine Aged Out No lo nger eligible based on patient's age to complete [...] Screening for malignant neoplasm of the rectum COMPREHENSIVE METABOLIC PANEL Routine 07/02/2024 11:36 AM EST Routine general medical examination at a health care facility LIPID PANEL Routine 05/01/2024 COLONOSCOPY Routine 05/10/2017 HEPATITIS C SCREENING Routine 11/28/2012 from Last 3 Months or Most Recently Relevant to Health Maintenance Results * Cologuard?? colon cancer screening (08/03/2024 8:40 AM EST) COLOGUARD Negative Negative [facility] Comment: NEGATIVE TEST RESULT. A negative [...] cancer. ??Following a negative Cologuard result, the [place] Cancer Society and U.S. Multi-Society Task Force screening guidelines recommend a Cologuard re-screening interval of 3 years. References: [place] [employer] Guideline for Colorectal Cancer Screening: https://www.cancer.org/cancer/vuber-ybnuwz-kmokpg/issgtrljt-wqndtpomz-ghofzvx/ac s-rec ommendations.html.; Joey DK, Francis CR, Mitra LalaK, Colorectal Cancer Screening: Recommendations for Physicians and Patients from the U.S. Multi-Society Task Force on Colorectal Cancer Screening , Am J Gastroenterology 2017; 112:8040-1421. TEST DESCRIPTION: Composite algorithmic analysis of stool [...] Beltran et al, N Engl J Med 2014;370(14):8613-2498.) Cologuard may produce a false negative or false positive result (no colorectal cancer or precancerous polyp present at colonoscopy follow up). A negative Cologuard test result does not guarantee the absence of CRC or advanced adenoma (pre-cancer). The current Cologuard screening interval is every 3 years. ([place] Cancer Society and U.S. Multi-Society Task Force). Cologuard performance data in a 10,000 patient pivotal study using colonoscopy as the reference method can be accessed at the following location: www.Trusight.Dogeo/results. Additional description of the Cologuard test process, warnings and precautions can be found at www.Giveyrd.com. Stool 08/03/2024 8:40 AM EST 08/04/2024 10:20 AM EST Monika MULTANI LAB MOLECULAR DIAGNOSTICS ORDERA BLES Final Result [facility] - [address] [place] [address] [facility] [address] [place] [address] * (ABNORMAL) Comprehensive metabolic panel (07/02/2024 11:36 AM EST) Sodium 140 133 - 145 mmol/L LAB CHEMISTRY METHOD 07/02/2024 3:15 PM [facility] Potassium 4.6 3.5 - 5.5 mmol/L LAB CHEMISTRY METHOD 07/02/2024 3:15 PM [facility] Chloride 108 96 - 110 mmol/L LAB CHEMISTRY METHOD 07/02/2024 3:15 PM [facility] CO2 25 21 - 32 mmol/L LAB CHEMISTRY METHOD 07/02/2024 3:15 PM [facility] Anion Gap 7 3 - 11 LAB CHEMISTRY METHOD 07/02/2024 3:15 PM [facility] Glucose 104(H) 70 - 100 mg/dL LAB CHEMISTRY METHOD 07/02/2024 3:15 PM [facility] BUN 15 5 - 25 mg/dL LAB CHEMISTRY METHOD 07/02/2024 3:15 PM [facility] Creatinine 0.83 0.70 - 1.30 mg/dL LAB CHEMISTRY METHOD 07/02/2024 3:15 PM [facility] eGFR 99 >=60 mL/min/1. 73m2 LAB CHEMISTRY METHOD 07/02/2024 3:15 PM [facility] Comment:Calculation based on the??Chronic Kidney Disease Epidemiology Collaboration (CKD-EPI) equation refit??without adjustment for race. BUN/Creatinine Ratio 18.1 LAB CHEMISTRY METHOD 07/02/2024 3:15 PM [facility] Calcium 9.8 8.5 - 10.5 mg/dL LAB CHEMISTRY METHOD 07/02/2024 3:15 PM [facility] AST (SGOT) 25 10 - 42 unit/L LAB CHEMISTRY METHOD 07/02/2024 3:15 PM [facility] ALT (SGPT) 45 10 - 60 unit/L LAB CHEMISTRY METHOD 07/02/2024 3:15 PM [facility] Alkaline Phosphatase 75 42 - 121 unit/L LAB CHEMISTRY METHOD 07/02/2024 3:15 PM [facility] Total Protein 7.5 6.0 - 8.0 g/dL LAB CHEMISTRY METHOD 07/02/2024 3:15 PM [facility] Albumin 4.2 3.2 - 5.0 g/dL LAB CHEMISTRY METHOD 07/02/2024 3:15 PM [facility] Total Bilirubin 0.5 0.0 - 1.4 mg/dL LAB CHEMISTRY METHOD 07/02/2024 3:15 PM [facility] Blood Venous blood specimen / Unknown Venipuncture / Unknown 07/02/2024 11:36 AM EST 07/02/2024 11:36 AM EST Monika MULTANI LAB BLOOD ORDERABLES Final Resul t [facility] [address] [place] [address], * (ABNORMAL) Lipid panel (05/01/2024) LDL/HDL Ratio 7(A) 0 - 4 Triglycerides 311(A) 0 - 150 mg/dL Cholesterol 257(A) 0 - 200 mg/dL HDL 38(A) >=40 mg/dL LDL Cholesterol 157(A) 0 - 100 mg/dL Blood Venous blood specimen / Unknown us Historical Provider LAB BLOOD ORDERABLES Argenis l Result * Colonoscopy (05/10/2017) Colonoscopy No interpretation with ,abstracted Anatomical Region Laterality Modality Other us Historical Provider HEALTH MAINTENANCE Final Result * Hepatitis C Screening (11/28/2012) Hepatitis C Screening Abstracted us Historical Provider HEALTH MAINTENANCE Final Result from Last 3 Months or Most Recently Relevant to Health Maintenance Insurance [facility] Care Teams Parts Administrator Relationship Specialty Start Date End Date Ameena Bonilla MD [address] [place] [id number] PCP - General Internal Medicine 08/13/15
== END 2024-10-24 06:11 | disposition home or self-care (01) ==
LOC: CF 06:10
PROVIDERS: Visit Provider Internal Medicine
DX: M75.32 Calcific tendinitis of left shoulder (principal)
CPT/HCPCS: J2003; J2795

== ENCOUNTER 2024-10-24 09:49 | Outpatient (AMB) | payer OTHER, SELFPAY ==
[2024-10-24 10:17] VITALS: BP 153/90; PULSE 85; RESP 16; O2SAT 95
--- NOTE | 2024-10-24 10:17 | MHC.OFFVIS ---
Vital Signs 10/24/24 10:17 10/24/24 11:08 BP 153/90 H 131/80 Blood Pressure Location Lt brachial Lt brachial Position Sitting Sitting Respiration 16 16 Pulse 85 64 Pulse Source Pulse Oximeter Pulse Oximeter Pulse Oximetry (%) 95 97 Oxygen Delivery Method Room Air Room Air Intake Visit Reasons: repeat Left shoulder PRP Intake Note: Pt was offered a wheelchair raide to the lobby post procedure and refused Etched Circuit Processor Required: No Allergies No Known Allergies Allergy (Verified 10/24/24 10:17) Medication List - Last Reconciled 10/24/24 by Irish Brandt LPN diazepam 5 mg PO BEDTIME PRN diclofenac sodium 1% (Arthritis Pain (diclofenac)) 2 grams topical QID oxycodone 5 mg PO BID PRN tramadol 50 mg PO DAILY PRN HPI HPI repeat Left shoulder PRP: Details: Patient presents for scheduled procedure. Denies any recent cough, cold, infection, fever or other significant changes in medical history since last office visit. [facility] Medical History Lateral epicondylitis Bursitis of right shoulder CAD (coronary artery disease) Heart problem Surgical History History of coronary artery stent placement Social History Current occupational status: employed Current occupation: [employer]- right handed Physical Exam Vital Signs: Last Vital Signs Pulse 64 10/24/24 11:08 Resp 16 10/24/24 11:08 BP 131/80 10/24/24 11:08 Pulse Ox 97 10/24/24 11:08 Oxygen Delivery Method Room Air 10/24/24 11:08 Office Procedures Platelet Rich Plasma Injection PRP Joint Injection PRP Joint Injection After informed written consent was obtained, pre-procedure oxygen saturation, heart rate, and blood pressure were recorded. An 18 gauge butterfly needle was used to obtain 50 mL of whole blood from the right antecubital fossa. This was then mixed with 9 mL anticoagulant citrate dextrose solution. The 60 mL mixture was counter balanced to within 1 g and spun at 3500 rpm for 10 minutes. Platelet poor plasma was then drawn using a bench top press model. 6 mL of slightly leukocyte rich PRP was isolated in a 10 cc syringe. Primary Site: left shoulder (4 mL each at supraspinatus tendon, 2 mL biceps tendon) Prep: site was prepped using sterile technique Approach Used: other (US guided) Procedure: The patient tolerated the procedure well XCELL Platelet Plasma - 0232T 60 mL All charges added?: Procedure code (CPT) selection complete Assessment & Plan Assessment & Plan (1) Calcific tendonitis of left shoulder: Code(s): M75.32 - Calcific tendinitis of left shoulder Category: Medical Plan Patient is status post left shoulder repeat PRP injection targeted to the biceps tendon and supraspinatus tendon. Patient tolerated procedure well and was discharged home in stable condition with discharge instructions. All questions were answered. We will follow-up via telephone or in clinic to assess response to therapy. A follow-up appointment was made during today's visit. Orders: Orders AMB Platelet Rich Plasma (PRP) Injection Today Mike Michelle MD M75.32 - Calcific tendinitis of left shoulder US guide needle placement Today TIESHA Conner M24.812 - Other specific joint derangements of left shoulder, not elsewhere classified, M75.32 - Calcific tendinitis of left shoulder Coding Level of Care Code Procedure Only Diagnoses Calcific tendonitis of left shoulder M75.32 CPT Codes XCELL Kit 60mL ([id number])
[2024-10-24 11:08] VITALS: BP 131/80; PULSE 64; RESP 16; O2SAT 97
--- OUTSIDE RECORDS SUMMARY | 2024-10-24 11:56 | XMS_ITS | Clinical Summary ---
Author Organization [facility] [address] [facility] l[address] Address [address] [place] [address] Phone Care Team Providers Care Tenoner Operator Name Role Phone Ameena Bonilla MD Primary Care Provider [phone] Allergies No known active allergies Medications multivitamin [...] 07/02/2024 Obstructive sleep apnea 06/11/2020 Overview (06/05/2024): [facility] Polysomnogram: Date 06/05/2020; Wt 190#; [...] wall 09/09/2011 Coronary artery disease invo [place]ving [place] coronary artery of [place] heart without angina pectoris 08/11/2011 Overview (06/05/2024): [facility] admission from office- 07/26/11 07/27/2011 - [...] 09/19/2024 10:00 AM EST Consult Gastroenterology - [place] [address] [place] [address] Marychuy Deleon NP Gastroesophageal reflux [...] care for your loved ones. For example, children counselor or elderly care for an older adult? [...] 8:40 AM EST) COLOGUARD Negative Negative [facility] Comment: NEGATIVE TEST RESULT. A negative [...] cancer. ??Following a negative Cologuard result, the [place] Cancer Society and U.S. Multi-Society Task Force screening guidelines recommend a Cologuard re-screening interval of 3 years. References: [place] Cancer Society Guideline for Colorectal Cancer Screening: https://www.cancer.org/cancer/iwcqr-kmqxoh-kwsdoe/nfigfoxqx-yritxgsao-jxfaafn/ac s-rec ommendations.html.; Joey DK, Francis CR, Mitra LalaK, Colorectal Cancer Screening: Recommendations for Physicians and Patients from the U.S. Multi-Society Task Force on Colorectal Cancer Screening , Am J Gastroenterology 2017; 112:9730-9974. TEST DESCRIPTION: Composite algorithmic analysis of stool [...] Beltran et al, N Engl J Med 2014;370(14):3303-5355.) Cologuard may produce a false negative or false positive result (no colorectal cancer or precancerous polyp present at colonoscopy follow up). A negative Cologuard test result does not guarantee the absence of CRC or advanced adenoma (pre-cancer). The current Cologuard screening interval is every 3 years. ([place] Cancer Society and U.S. Multi-Society Task Force). Cologuard performance data in a 10,000 patient pivotal study using colonoscopy as the reference method can be accessed at the following location: www.Enigmatec.Tellybean/results. Additional description of the Cologuard test process, warnings and precautions can be found at www.Neogrowthrd.com. Stool 08/03/2024 8:40 AM EST 08/04/2024 10:20 AM EST Monika MULTANI LAB MOLECULAR DIAGNOSTICS ORDERA BLES Final Result [facility] - [address] [place] [address] [facility] [address] [place] [address] * (ABNORMAL) Comprehensive metabolic panel (07/02/2024 11:36 AM EST) Sodium 140 133 - 145 mmol/L LAB CHEMISTRY METHOD 07/02/2024 3:15 PM [facility] Potassium 4.6 3.5 - 5.5 mmol/L LAB CHEMISTRY METHOD 07/02/2024 3:15 PM [facility] Chloride 108 96 - 110 mmol/L LAB CHEMISTRY METHOD 07/02/2024 3:15 PM [facility] CO2 25 21 - 32 mmol/L LAB CHEMISTRY METHOD 07/02/2024 3:15 PM [facility] Anion Gap 7 3 - 11 LAB CHEMISTRY METHOD 07/02/2024 3:15 PM [facility] Glucose 104(H) 70 - 100 mg/dL LAB CHEMISTRY METHOD 07/02/2024 3:15 PM [facility] BUN 15 5 - 25 mg/dL LAB CHEMISTRY METHOD 07/02/2024 3:15 PM [facility] Creatinine 0.83 0.70 - 1.30 mg/dL LAB CHEMISTRY METHOD 07/02/2024 3:15 PM [facility] eGFR 99 >=60 mL/min/1. 73m2 LAB CHEMISTRY METHOD 07/02/2024 3:15 PM [facility] Comment:Calculation based on the??Chronic Kidney Disease Epidemiology Collaboration (CKD-EPI) equation refit??without adjustment for race. BUN/Creatinine Ratio 18.1 LAB CHEMISTRY METHOD 07/02/2024 3:15 PM [facility] Calcium 9.8 8.5 - 10.5 mg/dL LAB CHEMISTRY METHOD 07/02/2024 3:15 PM [facility] AST (SGOT) 25 10 - 42 unit/L LAB CHEMISTRY METHOD 07/02/2024 3:15 PM [facility] ALT (SGPT) 45 10 - 60 unit/L LAB CHEMISTRY METHOD 07/02/2024 3:15 PM [facility] Alkaline Phosphatase 75 42 - 121 unit/L LAB CHEMISTRY METHOD 07/02/2024 3:15 PM [facility] Total Protein 7.5 6.0 - 8.0 g/dL LAB CHEMISTRY METHOD 07/02/2024 3:15 PM [facility] Albumin 4.2 3.2 - 5.0 g/dL LAB CHEMISTRY METHOD 07/02/2024 3:15 PM [facility] Total Bilirubin 0.5 0.0 - 1.4 mg/dL LAB CHEMISTRY METHOD 07/02/2024 3:15 PM [facility] Blood Venous blood specimen / Unknown Venipuncture / Unknown 07/02/2024 11:36 AM EST 07/02/2024 11:36 AM EST Monika MULTANI LAB BLOOD ORDERABLES Final Resul t [facility] [address] [place] [address], * (ABNORMAL) Lipid panel (05/01/2024) LDL/HDL Ratio [...] Most Recently Relevant to Health Maintenance Insurance [facility] Care Teams Tenoner Operator Relationship Specialty Start Date End Date Ameena Bonilla MD [address] [place] [id number] PCP - General Internal Medicine 08/13/15
== END 2024-10-24 11:17 | disposition home or self-care (01) ==
LOC: HO.PMCPRC 09:49
PROVIDERS: PCP Pediatrics; Visit Provider Internal Medicine
DX: M75.32 Calcific tendinitis of left shoulder (principal)
CPT/HCPCS: 0232T

== ENCOUNTER 2024-12-18 09:40 | Outpatient (AMB) | payer OTHER, SELFPAY ==
--- NOTE | 2024-12-18 09:57 | A.OFFVIS_ITS ---
Vital Signs 12/18/24 09:58 Height 5 ft 9 in Weight 201 lb BMI 29.7 BP 154/89 H Blood Pressure Location Lt brachial Position Sitting Respiration 16 Pulse 76 Pulse Source Pulse Oximeter Pulse Oximetry (%) 96 Oxygen Delivery Method Room Air Intake Visit Reasons: s/p repeat PRP Band Maker Required: No Allergies No Known Allergies Allergy (Verified 12/18/24 10:00) Medication List - Last Reconciled 12/18/24 by Irish Brandt LPN diclofenac sodium 1% (Arthritis Pain (diclofenac)) 2 grams topical QID HPI HPI s/p repeat PRP: Details: History of Present Illness The patient is a 64-year-old male presenting with pain in the shoulders. He has found significant relief following 2 rounds of PRP injections. His sleep has improved and his range of motion and pain levels have also improved. He is interested in returning to physical therapy to help increase his range of motion now that his pain symptoms are relatively better controlled. Recently, the patient has found some benefit from soaking and exercising in warm mineral spring water in [place], indicating improvements in discomfort and functional limitations related to his shoulder pain. The ongoing pain still affects his activities, such as sudden arm movements and sleep, but the condition appears to have improved slightly. Pain Description - Quality: Intense pain experienced during and post injections - Primary location: Right shoulder - Radiation: Reported flow of pain when moving arm quickly - Exacerbating factors: Rapid arm movements - Relieving factors: Physical therapy, softwave therapy, soaking and exercise in mineral spring water - Interference: Impacts sleep and limits rapid movements Physical Exam - Improved left shoulder range of motion Pain Management - Affect: Sleep disturbances from shoulder pain, with recent improvement noted - Analgesia: Considering softwave therapy and physical therapy as adjuncts to PRP therapy - Adverse Effects: Description of injections as too painful - Activities of Daily Living: Limited by pain in shoulders, partially improved sleep - Aberrant Drug Related Behaviors: No aberrant behaviors reported [facility] Medical History Lateral epicondylitis Bursitis of right shoulder CAD (coronary artery disease) Heart problem Surgical History History of coronary artery stent placement Social History Current occupational status: employed 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 Physical Exam Vital Signs: Last Vital Signs Pulse 76 12/18/24 09:58 Resp 16 12/18/24 09:58 BP 154/89 H 12/18/24 09:58 Pulse Ox 96 12/18/24 09:58 Oxygen Delivery Method Room Air 12/18/24 09:58 BMI result Body Mass Index 29.7 Assessment & Plan Assessment & Plan (1) Tendonitis of left rotator cuff: Code(s): M75.82 - Other shoulder lesions, left shoulder Category: Medical (2) Bilateral shoulder bursitis: Code(s): M75.51 - Bursitis of right shoulder; M75.52 - Bursitis of left shoulder Category: Medical (3) Right rotator cuff tendinitis: Code(s): M75.81 - Other shoulder lesions, right shoulder Category: Medical Plan Plan - A prescription for physical therapy will be provided to address bilateral shoulder pain in combination with the ultrasound therapy for tendinosis.. - The patient will consider softwave therapy, an option for tendinitis that may be explored following physical therapy. - Workers' compensation may cover physical therapy, ensuring authorization is pursued for this treatment. Patient was informed and verbally consented to the use of an ambient scribe for clinic note documentation during this visit. Discussion Notes During the discussion, I advised the patient on commencing physical therapy for his bilateral shoulder pain. We discussed the potential benefits of softwave therapy as an alternative due to the painful nature of previous injection treatments. The conversation included information about workers' compensation potentially covering the physical therapy sessions, leading to a feasible treatment plan. The patient provided consent for moving forward with physical th erapy as the first line of action. Patient Instructions - Schedule and attend physical therapy sessions as prescribed. - Consider Shockwave therapy for shoulder pain if physical therapy is not fully effective. - Monitor shoulder pain and report changes or challenges with physical therapy. - Utilize workers' compensation coverage for physical therapy sessions if applicable. Orders: Orders PT Evaluation and Treatment 12/18/24 M75.51 - Bursitis of right shoulder, M75.52 - Bursitis of left shoulder, M75.81 - Other shoulder lesions, right shoulder, M75.82 - Other shoulder lesions, left shoulder Coding Level of Care Code Est Pt Level 4 (92830) Diagnoses Tendonitis of left rotator cuff M75.82 Bilateral shoulder bursitis M75.51; M75.52 Right rotator cuff tendinitis M75.81
[2024-12-18 09:58] VITALS: BP 154/89; PULSE 76; RESP 16; O2SAT 96; BMI 29.7
== END 2024-12-18 10:28 | disposition home or self-care (01) ==
LOC: HO.PMC 09:42
PROVIDERS: PCP Pediatrics; Visit Provider Internal Medicine
DX: M75.82 Other shoulder lesions, left shoulder (principal); M75.51 Bursitis of right shoulder; M75.52 Bursitis of left shoulder; M75.81 Other shoulder lesions, right shoulder
CPT/HCPCS: 99213

== ENCOUNTER → 2024-12-18 09:40 | Outpatient (BNVA) | payer OTHER, SELFPAY | PROVIDERS: PCP Pediatrics; Visit Provider Internal Medicine | DX: M75.82 Other shoulder lesions, left shoulder (principal); M75.81 Other shoulder lesions, right shoulder; M75.52 Bursitis of left shoulder; M75.51 Bursitis of right shoulder | CPT/HCPCS: 99212 ==